=== PATIENT | male | born 1960 | race Caucasian/White ===

== ENCOUNTER → 2023-10-01 08:42 | Outpatient (CLI) | payer BC, SELFPAY ==
[2023-10-01 18:39] LABS: Influenza A, PCR Not Detected (NotDetected); Influenza B, PCR Not Detected (NotDetected)
[2023-10-01 21:04] LABS: Coronavirus 19, PCR Detected (NotDetected)
== END ==
PROVIDERS: PCP Emergency Medicine; Visit Provider Emergency Medicine
DX: R05.9 Cough, unspecified (principal); R09.89 Other specified symptoms and signs involving the circulatory and respiratory systems; U07.1 COVID-19
CPT/HCPCS: 87636